=== PATIENT | male | born 1975 | race Caucasian/White ===

== ENCOUNTER 2018-10-22 09:40 | Emergency (ER) | payer OTHER ==
[~2018-10-22] VITALS: Ht 175.3 cm; Wt 77.1 kg
[2018-10-22] MEDS ORDERED: ALBUTEROL SULFATE 2.5 MG/3 ML NEBU. ONE (09:52)
[2018-10-22] MEDS ORDERED: ALBUTEROL SULFATE 2.5 MG/3 ML NEBU. NEB ONE (10:00)
--- NOTE | 2018-10-22 10:00 | PHYS DOC ---
Adult General Chief Complaint Chief Complaint: SHORTNESS OF BREATH HPI HPI Patient is a 43 year old male who presents with complaint of cough and shortness of breath. Patient states that he has had cough and congestion over the past 2 weeks. Started getting worsening cough and shortness of breath today. States he is had thick yellow mucus with his cough. Also has nasal and sinus congestion. Has been taking [id number]-vqk-mceerfi medication with no significant relief. No fevers today. Denies history of asthma. States that his cough worsens when he takes a deep breath. Review of Systems Review of Systems Constitutional: Denies fever or chills [] Eyes: Denies change in visual acuity, redness, or eye pain [] HENT: Nasal congestion, sinus pressure[] Respiratory: Shortness breath, cough[] Cardiovascular: Denies chest pain or edema[] GI: Denies abdominal pain, nausea, vomiting, bloody stools or diarrhea [] : Denies dysuria or hematuria [] Musculoskeletal: Denies back pain or joint pain [] Integument: Denies rash or skin lesions [] Neurologic: Denies headache, focal weakness or sensory changes [] All other systems were reviewed and found to be within normal limits, except as documented in this note. Current Medications Current Medications Current Medications Medications (Trade) Dose Ordered Sig/Viviane Start Time Stop Time Status Last Admin Dose Admin Albuterol Sulfate (Ventolin) 2.5 mg STK-MED ONCE 10/22/18 09:52 10/22/18 09:53 DC Allergies Allergies Allergies Coded Allergies Type Severity Reaction Last Updated Verified Penicillins Allergy Intermediate 10/22/18 Yes amoxicillin Allergy Intermediate 10/22/18 Yes Physical Exam Physical Exam Constitutional: Alert, afebrile, appears in mild discomfort. [] HENT: Normocephalic, atraumatic, bilateral external ears normal, oropharynx moist, no oral exudates, nasal mucosal edema with thick rhinorrhea. [] Eyes: PERRLA, EOMI, conjunctiva normal, no discharge. [] Neck: Normal range of motion, no tenderness, supple, no stridor. [] Cardiovascular:Heart rate regular rhythm, no murmur [] Lungs & Thorax: Mildly decreased air movement bilaterally, occasional rhonchi, no wheezes or rales[] Abdomen: Bowel sounds normal, soft, no tenderness, no masses, no pulsatile masses. [] Skin: Warm, dry, no erythema, no rash. [] Back: No tenderness, no CVA tenderness. [] Extremities: No tenderness, no cyanosis, no clubbing, ROM intact, no edema. [] Neurologic: Alert and oriented X 3, normal motor function, normal sensory function, no focal deficits noted. [] Current Patient Data Vital Signs Vital Signs Date Time Temp Pulse Resp B/P (MAP) Pulse Ox O2 Delivery O2 Flow Rate FiO2 10/22/18 09:56 95 Room Air 10/22/18 09:45 98.1 61 22 Lab Results Not performed EKG EKG Not performed[] Radiology/Procedures Radiology/Procedures [address] [address] IMAGING REPORT Signed PATIENT: SHAMIKA HOLLOWAY ACCOUNT: [id number] : 1975 LOCATION: ER AGE: 43 SEX: M EXAM STATUS: REG ER ORD. PHYSICIAN: EDUARDA VEGA MD REASON: cough for 2 weeks PROCEDURE: CHEST PA & LATERAL Chest, PA and Lateral: Technique: PA and lateral views of the chest were obtained. History: Cough for 2 weeks. Comparison: None. Findings: The heart size grossly appears unremarkable. There is mild prominent bilateral perihilar interstitial lung markings likely mild by prominent bilateral perihilar infiltrates. Mild degenerative changes thoracic spine IMPRESSION: Mild prominent bilateral perihilar interstitial lung markings probably bronchitis. Electronically signed by: Bj Ashley MD (10/22/2018 10:15 AM) [id number] DICTATED AND SIGNED BY: BJ ASHLEY MD DATE: 10/22/18 1015 CC: EDUARDA VEGA MD; PCP,NO ~ [] Course & Med Decision Making Course & Med Decision Making Pertinent Labs and Imaging studies reviewed. (See chart for details) Patient given albuterol and prednisone in the emergency department. Chest x-ray shows infiltrate pattern suggestive of acute bronchitis. Given symptoms have been present over the past 2.5 weeks, antibiotic treatment appears to be appropriate. We'll prescribe albuterol inhaler, Medrol Dosepak, and azithromycin. Recommended follow-up with primary doctor in 5 days for reevaluation and return to the emergency department for any worsening symptoms. Patient was understanding and in agreement with treatment plan. Dragon Disclaimer Dragon Disclaimer This electronic medical record was generated, in whole or in part, using a voice recognition dictation system. Departure Departure: Impression: Primary Impression: Acute bronchitis Disposition: 01 HOME, SELF-CARE Condition: IMPROVED Patient Instructions: Acute Bronchitis Additional Instructions: Follow-up with primary care in the next 5 days if symptoms are not improving. Return to the emergency department for any worsening symptoms. Scripts Albuterol Sulfate (VENTOLIN HFA INHALER) 18 Gm Hfa.aer.ad 1 PUFF IH Q4-6HRS PRN for SHORTNESS OF BREATH, #1 INHALER 0 Refills Prov: EDUARDA VEGA MD 10/22/18 Azithromycin (AZITHROMYCIN TABLET) 250 Mg Tablet 1 PKG PO UD, #6 TAB Prov: EDUARDA VEGA MD 10/22/18 Methylprednisolone (MEDROL) 4 Mg Tab.ds.pk 1 PKG PO UD, #1 PKG Prov: EDUARDA VEGA MD 10/22/18 Problem Qualifiers Primary Impression: Acute bronchitis Bronchitis organism: unspecified organism Qualified Codes: J20.9 - Acute bronchitis, unspecified EDUARDA VEGA MD Oct 22, 2018 10:00
[2018-10-22] MEDS ORDERED: predniSONE 20 MG TABLET ONE (10:01)
[2018-10-22] MEDS ORDERED: predniSONE 20 MG TABLET PO ONE (10:15)
--- NOTE | 2018-10-22 10:18 | RAD ---
Chest, PA and Lateral: Technique: PA and lateral views of the chest were obtained. History: Cough for 2 weeks. Comparison: None. Findings: The heart size grossly appears unremarkable. There is mild prominent bilateral perihilar interstitial lung markings likely mild by prominent bilateral perihilar infiltrates. Mild degenerative changes thoracic spine IMPRESSION: Mild prominent bilateral perihilar interstitial lung markings probably bronchitis. Electronically signed by: Bj Ashley MD (10/22/2018 10:15 AM) [id number]
[2018-10-22] MEDS ORDERED: ALBU2.5V8 IH (10:31)
[2018-10-22] MEDS ORDERED: AZIT250T6 PO (10:31)
[2018-10-22] MEDS ORDERED: METH4TAB2 PO (10:31)
[2018-10-22 10:49] VITALS: BP 112/79
== END 2018-10-22 10:51 | disposition home or self-care (01) ==
LOC: ER 09:40
DX: J20.9 Acute bronchitis, unspecified (principal); Z88.0 Allergy status to penicillin; Z88.1 Allergy status to other antibiotic agents
CPT/HCPCS: 71046; 94640; 99284; J7512; J7613